=== PATIENT | male | born 1970 | race Caucasian/White ===

== ENCOUNTER → 2020-05-02 | Outpatient (CLI) | payer OTHER ==
[~2020-05-02] MED LIST: CALCIUM CITRAT1 EAC4 PO; COLACE 100MG C100 MG PO; CYANOCOBAL1000 MCG/1 IM; CYCLOBENZAPRINE5 MG PO; DULOXETINE HCL60 MG PO; GLYCERIN1 EAC1 PR; HYDROCODONE-AC1 EAC1 PO; IPRAT-ALBUT 0.5-3 ML INH; NEURONTIN 100100 MG PO; PROTONIX 40 MG40 M1 PO; TRAZODONE HCL50 MG PO; VENTOLIN HFA 66.7 GM INH; ZOFRAN ODT 4 MG4 MG PO; ZOFRAN4 MG PO
== END ==
LOC: ECHO 11:30 → NM 13:00
DX: R06.02 Shortness of breath (principal); J98.4 Other disorders of lung
CPT/HCPCS: ECHO; 71046; 93306

== ENCOUNTER → 2020-05-08 | Outpatient (CLI) | payer OTHER | LOC: HEART 5 10:33 | DX: R06.02 Shortness of breath (principal); R94.2 Abnormal results of pulmonary function studies; F17.210 Nicotine dependence, cigarettes, uncomplicated | CPT/HCPCS: 94010; 94729 ==

== ENCOUNTER 2020-06-15 10:57 | Emergency (ER) | payer OTHER ==
[~2020-06-15 10:57] MED LIST changes: -CALCIUM CITRAT1 EAC4 PO; -CYANOCOBAL1000 MCG/1 IM; -CYCLOBENZAPRINE5 MG PO; -DULOXETINE HCL60 MG PO; -HYDROCODONE-AC1 EAC1 PO; -IPRAT-ALBUT 0.5-3 ML INH; -PROTONIX 40 MG40 M1 PO; -TRAZODONE HCL50 MG PO; -VENTOLIN HFA 66.7 GM INH; -ZOFRAN4 MG PO
[2020-06-15 11:52] LABS: HEMOGLOBIN 13.4 gm/dl (14.0-17.5); RED BLOOD COUNT 3.81 M/UL (4.20-5.50); WHITE BLOOD COUNT 7.1 K/UL (4.5-11.0)
[2020-06-15 12:12] LABS: BUN/CREATININE RATIO 8 (0-10)
[2020-06-15] MEDS ORDERED: ZOFRAN4 MG PO (14:51)
[2020-07-01] MEDS ORDERED: CYANOCOBAL1000 MCG/1 IM (08:42)
[2020-07-01] MEDS ORDERED: CALCIUM CITRAT1 EAC4 PO (08:42)
[2020-07-01] MEDS ORDERED: DULOXETINE HCL60 MG PO (08:43)
[2020-07-01] MEDS ORDERED: HYDROCODONE-AC1 EAC1 PO (08:43)
[2020-07-01] MEDS ORDERED: CYCLOBENZAPRINE5 MG PO (08:43)
[2020-07-01] MEDS ORDERED: ZOFRAN4 MG PO (08:44)
[2020-07-01] MEDS ORDERED: IPRAT-ALBUT 0.5-3 ML INH (08:44)
[2020-07-01] MEDS ORDERED: PROTONIX 40 MG40 M1 PO (08:45)
[2020-07-01] MEDS ORDERED: VENTOLIN HFA 66.7 GM INH (08:46)
[2020-07-01] MEDS ORDERED: TRAZODONE HCL50 MG PO (08:46)
== END 2020-06-15 15:10 | disposition home or self-care (01) ==
LOC: ER1 10:57
PROVIDERS: Physician Assistant
DX: K52.9 Noninfective gastroenteritis and colitis, unspecified (principal); E87.6 Hypokalemia; J44.9 Chronic obstructive pulmonary disease, unspecified; F17.210 Nicotine dependence, cigarettes, uncomplicated
CPT/HCPCS: 80053; 82150; 83690; 85025; 96374; 96375; 99284; C9113; J2405; J7030; Q9967

== ENCOUNTER → 2020-07-01 | Day surgery (SDC) | payer MEDICARE, OTHER ==
[~2020-07-01] MED LIST changes: +CALCIUM CITRAT1 EAC4 PO; +CYANOCOBAL1000 MCG/1 IM; +CYCLOBENZAPRINE5 MG PO; +DULOXETINE HCL60 MG PO; +HYDROCODONE-AC1 EAC1 PO; +IPRAT-ALBUT 0.5-3 ML INH; +PROTONIX 40 MG40 M1 PO; +TRAZODONE HCL50 MG PO; +VENTOLIN HFA 66.7 GM INH; +ZOFRAN4 MG PO
== END | disposition home or self-care (01) ==
LOC: OR 07:30
DX: K31.9 Disease of stomach and duodenum, unspecified (principal); I10 Essential (primary) hypertension; J44.9 Chronic obstructive pulmonary disease, unspecified; K21.9 Gastro-esophageal reflux disease without esophagitis; E78.5 Hyperlipidemia, unspecified; E11.9 Type 2 diabetes mellitus without complications; M81.0 Age-related osteoporosis without current pathological fracture; F41.8 Other specified anxiety disorders; F17.200 Nicotine dependence, unspecified, uncomplicated; Z91.010 Allergy to peanuts; Z79.899 Other long term (current) drug therapy
CPT/HCPCS: J2704; J7030

== ENCOUNTER → 2020-11-17 | Outpatient (CLI) | payer OTHER | LOC: KOH-I 16:00 | DX: M54.2 Cervicalgia (principal); M47.812 Spondylosis without myelopathy or radiculopathy, cervical region; M48.02 Spinal stenosis, cervical region; M47.814 Spondylosis without myelopathy or radiculopathy, thoracic region; Z98.890 Other specified postprocedural states | CPT/HCPCS: 72141 ==

== ENCOUNTER 2021-07-08 15:14 | Inpatient (IN) | payer MEDICARE, OTHER ==
[~2021-07-08] VITALS: Ht 180.3 cm; Wt 49.4 kg
[~2021-07-08 15:14] MED LIST changes: -DULOXETINE HCL60 MG PO; -PROTONIX 40 MG40 M1 PO; -TRAZODONE HCL50 MG PO
[2021-07-08 20:43] LABS: HEMOGLOBIN 12.5 gm/dl (14.0-17.5); RED BLOOD COUNT 3.66 M/UL (4.20-5.50); WHITE BLOOD COUNT 12.5 K/UL (4.5-11.0)
[2021-07-08 21:09] LABS: BUN/CREATININE RATIO 20 (0-10)
[2021-07-09 04:51] LABS: HEMOGLOBIN 11.7 gm/dl (14.0-17.5); RED BLOOD COUNT 3.46 M/UL (4.20-5.50)
[2021-07-09 04:57] LABS: WHITE BLOOD COUNT 9.3 K/UL (4.5-11.0)
[2021-07-09 05:40] LABS: BUN/CREATININE RATIO 22 (0-10)
[2021-07-09] MEDS ORDERED: FOLIC ACID 1 MG1 MG PO (07:51)
[2021-07-09] MEDS ORDERED: ASPIRIN EC81 MG PO (07:51)
[2021-07-09] MEDS ORDERED: VITAMIN C 500500 MG PO (07:52)
[2021-07-09] MEDS ORDERED: VITAMIN D21250 MCG PO (07:52)
[2021-07-09] MEDS ORDERED: MIRALAX17 GM PO (07:53)
[2021-07-09] MEDS ORDERED: MEGACE 400400 MG/10 PO (07:53)
[2021-07-09] MEDS ORDERED: CALCIUM CIT 311 EAC1 PO (07:59)
[2021-07-09] MEDS ORDERED: DULOXETINE HCL60 MG PO (08:43)
[2021-07-09] MEDS ORDERED: PROTONIX 40 MG40 M1 PO (08:45)
[2021-07-09] MEDS ORDERED: TRAZODONE HCL50 MG PO (08:46)
[2021-07-09] MEDS ORDERED: HYDROCODON-ACE1 EAC6 PO (18:58)
[2021-07-10 03:42] LABS: RED BLOOD COUNT 3.26 M/UL (4.20-5.50); WHITE BLOOD COUNT 7.8 K/UL (4.5-11.0)
[2021-07-10 04:10] LABS: BUN/CREATININE RATIO 15 (0-10)
[2021-07-10 16:14] LABS: ENDOMYSIAL ANTIBODY IGA Negative (Negative); IMMUNOGLOBULIN A, QN, SERUM 231 mg/dL (90-386); T-TRANSGLUTAMINASE (TTG) IGA <2 U/mL (0-3); T-TRANSGLUTAMINASE (TTG) IGG <2 U/mL (0-5)
[2021-07-10] MEDS ORDERED: ELIQUIS 5 MG TAB5 MG GT (17:15)
[2021-07-10] MEDS ORDERED: NICOTINE PATCH1 EAC2 TD (17:15)
[2021-07-10] MEDS ORDERED: RANEXA500 MG PO (17:15)
[2021-07-10] MEDS ORDERED: NITROGLYCERIN0.4 MG SL (17:15)
[2021-07-13 13:09] LABS: PROTEIN C-FUNCTIONAL 128 % (73-180); PROTEIN S, FREE 100 % (61-136); PROTEIN S, TOTAL 59 % (60-150); PROTEIN S-FUNCTIONAL 82 % (63-140)
[2021-07-14 09:17] LABS: DRVVT 39.5 sec (0.0-47.0); LUPUS REFLEX INTERPRETATION Comment: (.); PT 11.4 sec (9.1-12.0); PT 1:1NP 10.5 sec (9.1-12.0); PTT-LA 39.8 sec (0.0-51.9); THROMBIN TIME 19.8 sec (0.0-23.0)
== END 2021-07-10 18:16 | disposition home or self-care (01) | DRG 391 ==
LOC: M/S 15:14
PROVIDERS: Internal Medicine; Internal Medicine Gastroenterology; ADMIT Internal Medicine
PROC: 07DR3ZX Extraction of Iliac Bone Marrow, Percutaneous Approach, Diagnostic (ICD-10-PCS; principal; 2021-07-10)
DX: K52.9 Noninfective gastroenteritis and colitis, unspecified (principal); K55.019 Acute (reversible) ischemia of small intestine, extent unspecified; E44.0 Moderate protein-calorie malnutrition; Z68.1 Body mass index [BMI] 19.9 or less, adult; Z20.822 Contact with and (suspected) exposure to COVID-19; I25.10 Atherosclerotic heart disease of native coronary artery without angina pectoris; K29.70 Gastritis, unspecified, without bleeding; G89.29 Other chronic pain; M54.2 Cervicalgia; D64.9 Anemia, unspecified; K59.00 Constipation, unspecified; J44.9 Chronic obstructive pulmonary disease, unspecified; F17.210 Nicotine dependence, cigarettes, uncomplicated; Z91.81 History of falling; Z87.81 Personal history of (healed) traumatic fracture; Z79.01 Long term (current) use of anticoagulants; Z79.82 Long term (current) use of aspirin; Z90.49 Acquired absence of other specified parts of digestive tract; Z82.49 Family history of ischemic heart disease and other diseases of the circulatory system; Z83.3 Family history of diabetes mellitus
CPT/HCPCS: 36415; 71250; 80053; 80061; 81001; 82150; 82550; 82553; 82784; 83690; 83735; 84100; 84484; 85025; 85097; 85302; 85305; 85611; 88341; 88342; 93005; 94760; C9113; J1644; J2270; J2405; J2543; J3475; J7030; Q9967

== ENCOUNTER → 2021-10-07 | Outpatient (CLI) | payer MEDICARE, OTHER ==
[~2021-10-07] MED LIST changes: +ASPIRIN EC81 MG PO; +CALCIUM CIT 311 EAC1 PO; +DULOXETINE HCL60 MG PO; +ELIQUIS 5 MG TAB5 MG GT; +FAMOTIDINE40 MG PO; +FOLIC ACID 1 MG1 MG PO; +HYDROCODON-ACE1 EAC6 PO; +MEGACE 400400 MG/10 PO; +MIRALAX17 GM PO; +NICOTINE PATCH1 EAC2 TD; +NITROGLYCERIN0.4 MG SL; +ONDANSETRON HCL4 MG PO; +OXYCODON-ACETA1 EAC1 PO; +PROTONIX 40 MG40 M1 PO; +RANEXA500 MG PO; +TRAZODONE HCL50 MG PO; +VITAMIN C 500500 MG PO; +VITAMIN D21250 MCG PO
== END ==
LOC: CATH 06:56
DX: R94.39 Abnormal result of other cardiovascular function study (principal); I20.8 Other forms of angina pectoris; I10 Essential (primary) hypertension; D64.9 Anemia, unspecified; E78.5 Hyperlipidemia, unspecified; J44.9 Chronic obstructive pulmonary disease, unspecified; F17.210 Nicotine dependence, cigarettes, uncomplicated; Z91.010 Allergy to peanuts; Z79.899 Other long term (current) drug therapy
CPT/HCPCS: 93005; 99152; C1769; C1887; C1894; J1644; J2250; J3010; Q9967

== ENCOUNTER → 2021-11-10 | Outpatient (CLI) | payer MEDICARE | LOC: CT 11-06 15:00 | DX: K55.069 Acute infarction of intestine, part and extent unspecified (principal); K59.00 Constipation, unspecified | CPT/HCPCS: 36415; 82565; 84520; Q9967 ==